=== PATIENT | male | born 1975 | race Hispanic/Latino ===

== ENCOUNTER 2019-04-14 10:58 | Outpatient (CLI) | payer OTHER ==
--- NOTE | 2019-04-14 14:30 | Ultrasound Report ---
BILATERAL DIGITAL DIAGNOSTIC MAMMOGRAM WITH CAD -- 04/14/2019 LEFT COMPLETE BREAST ULTRASOUND INDICATION: 43-year-old male with tender left palpable breast lump. TECHNIQUE: Digital left mammographic imaging was performed. This examination was interpreted with maría godinez benefit of Computer-Aided Detection (CAD) analysis. COMPARISON: None. FINDINGS: Breast Density: MAMMOGRAPHIC FINDINGS: There is no evidence of dominant mass, suspicious calcifications or architectu ral distortion in either breast. Moderate bilateral fibroglandular densities, left greater than right . A triangular palpable marker correlates with an area of greater fibroglandular structures in the up per left breast. ULTRASOUND FINDINGS: Complete sonographic evaluation of all 4 quadrants and retroareolar region was p erformed. Moderate fibroglandular structures with no suspicious mass or shadowing. IMPRESSION: Bilateral gynecomastia, left worse than right. No suspicious finding. Follow up recommendation: Clinical exam BI-RADS Category 2: Benign. A "normal" or negative report should not discourage follow up or biopsy of a clinically significant f inding. A written summary of these findings will be mailed to the patient. The patient will be entered into a mammography reporting system which will generate a reminder letter for the patient's next appointmen t at the appropriate interval. According to the [employer], yearly mammograms are recommended starting at age 40 and continuing as long as a woman is in good health. Breast MRI is recommended for women with an moon roximately 20-25% or greater lifetime risk of breast cancer, including women with a strong family his tory of breast or ovarian cancer and women who have been treated for Hodgkin's disease. Signer Name: Willis Hall MD Signed: 04/14/2019 2:26 PM Workstation Name: [id number]
== END 2019-04-14 10:59 | disposition home or self-care (01) ==
LOC: MAMMO 10:58
PROVIDERS: ATTEND Specialist
DX: N62 Hypertrophy of breast (principal)
CPT/HCPCS: 77066